=== PATIENT | female | born 1985 | race Caucasian/White ===

== ENCOUNTER → 2018-04-03 | Outpatient (CLI) | payer BC ==
[~2018-04-03] MED LIST: GADOBUTROL 7.5 MMOL/7.5 ML VIAL IV ONE
--- NOTE | 2018-04-03 16:25 | RAD ---
MRI of the Brain without and with Contrast 04/03/2018 Clinical History: Left sided trigeminal neuralgia. Technique: Unenhanced T1-weighted sagittal and axial and FLAIR, T2-weighted, gradient echo and diffusion-weighted axial images of the brain were obtained. Additionally thin section T1-weighted axial and coronal and T2-weighted axial images through the brainstem to include the trigeminal nerves were obtained After the intravenous administration of 5 cc of Gadavist, enhanced T1-weighted axial images of the brain were obtained. Enhanced thin section T1-weighted axial and coronal images through the trigeminal nerves were obtained. Findings: The ventricles and sulci are within normal limits in size and configuration. No area of significant abnormal signal intensity is seen involving the brain parenchyma. A somewhat linear area of enhancement is seen involving the inferior medial left frontal lobe. This measures 1.7 cm in greatest diameter. This is felt to most likely represent a venous angioma. There is no surrounding edema or associated mass effect. No area of significant abnormal contrast enhancement is seen. No extra-axial fluid collection is noted. There is no MRI evidence of acute ischemia/infarction. Images through the trigeminal nerves are within normal limits. No abnormal soft tissue mass or area of abnormal contrast enhancement is noted. The internal auditory canals are within normal limits bilaterally. Mild mucosal thickening is seen scattered throughout the paranasal sinuses. There are minimal bilateral mastoid effusions. Normal flow voids are seen within the major vascular structures surrounding the brain parenchyma. Impression: No acute parenchymal abnormality is seen. Electronically signed by: Severino Hartley MD (04/03/2018 4:23 PM) [id number]
== END | disposition home or self-care (01) ==
LOC: RT 11:00
PROVIDERS: ATTEND Psychiatry & Neurology Neurology
DX: G50.0 Trigeminal neuralgia (principal); H74.8X3 Other specified disorders of middle ear and mastoid, bilateral
CPT/HCPCS: 70553; 95816; A9585